=== PATIENT | female | born 1945 | race Caucasian/White ===

== ENCOUNTER 2017-11-28 01:26 | Emergency (ER) | payer MEDICARE ==
[~2017-11-28] VITALS: Ht 162.6 cm; Wt 43.5 kg
[2017-11-28 01:29] VITALS: BP_SYST 234
[2017-11-28 03:03] LABS: CALCIUM 9.6 mg/dL (8.4-11.0); CHLORIDE 86 mmol/L (98-107); CREATININE 0.35 mg/dL (0.55-1.30); GLUCOSE 121 mg/dL (70-99); POTASSIUM 4.9 mmol/L (3.5-5.1); SODIUM SERUM 122 mmol/L (136-145); UREA NITROGEN, BLOOD 18 mg/dL (8-21)
[2017-11-28 03:04] LABS: ANION GAP < 3 (5-15)
[2017-11-28 03:07] LABS: BASOPHILS % (AUTO) 0.3 % (0.0-2.0); EOSINOPHILS % (AUTO) 0.2 % (0.0-4.0); HEMATOCRIT 56.4 % (36-48); HEMOGLOBIN 18.3 g/dL (12.0-16.0); LYMPHOCYTES # (AUTO) 0.7 K/uL (1.0-5.5); LYMPHOCYTES % (AUTO) 7.7 % (20.5-51.5); MEAN CORPUSCULAR HEMOGLOBIN 30 pg (27-31); MEAN CORPUSCULAR HGB CONC 33 % (32-36); MEAN CORPUSCULAR VOLUME 91 fL (79.0-98.0); MONOCYTES # (AUTO) 0.7 K/uL (0.0-1.0); MONOCYTES % (AUTO) 8.3 % (1.7-9.3); NEUTROPHILS # (AUTO) 7.3 K/uL (1.8-7.7); NEUTROPHILS % (AUTO) 83.5 % (40.0-70.0); PLATELET COUNT (AUTO) 246 K/uL (130-430); RED BLOOD CELL COUNT(AUTO) 6.18 MIL/uL (4.2-6.2); RED CELL DISTRIBUTION WIDTH 13.9 % (9.0-15.0); WHITE BLOOD COUNT (AUTO) 8.7 K/uL (4.8-10.8)
[2017-11-28 03:08] LABS: ALANINE AMINOTRANSFERASE 32 U/L (12-78); ALBUMIN 3.7 g/dL (3.4-4.8); ASPARTATE AMINOTRANSFERASE 26 U/L (10-37); INR 1.2 (0.8-1.2); PROTHROMBIN TIME 11.8 SECS (9.5-12.5); TOTAL BILIRUBIN 0.8 mg/dL (0.0-1.0)
[2017-11-28] MEDS ORDERED: NACL 0.9% 1,000 ML IV ONE (03:15)
[2017-11-28] MEDS ORDERED: METOPROLOL TARTRATE 5 MG/5 ML VIAL IVP ONE (05:15)
[2017-11-28 07:30] VITALS: BP_SYST 156
== END 2017-11-28 07:30 | disposition short-term general hospital (02) ==
LOC: SED 01:26
DX: E87.1 Hypo-osmolality and hyponatremia (principal); R06.02 Shortness of breath; I10 Essential (primary) hypertension; Z90.710 Acquired absence of both cervix and uterus; F17.210 Nicotine dependence, cigarettes, uncomplicated; Z88.0 Allergy status to penicillin; Z88.8 Allergy status to other drugs, medicaments and biological substances; Z91.041 Radiographic dye allergy status
CPT/HCPCS: 36415; 71045; 80053; 83880; 84484; 85025; 85610; 85730; 93005; 96361; 96374; 99285; J3490; J7030